=== PATIENT | female | born 1990 | race American Indian/Alaskan Native ===

== ENCOUNTER 2019-12-10 00:24 | Emergency (ER) | payer OTHER ==
[2019-12-10 01:24] VITALS: BP 106/72
[2019-12-10] MEDS ORDERED: diphenhydrAMINE 25 MG CAP PO ONE (04:07)
--- NOTE | 2019-12-10 04:11 | Emergency Department Report ---
ED Rash HPI - HPI Chief Complaint: Skin Rash Stated Complaint: ALLERGIC REACTION Time Seen by Provider: 12/10/19 04:01 Rash Symptoms: Yes Itching, No Facial Swelling, No Tongue/Oral Swelling, No Breathing Difficulties, No Choking Sensation, No Wheezing/Dyspnea, No Peeling, No Blistering, No Fever, No Lightheaded, No Malaise, No Myalgias Severity: mild Other History: Infected insect bites bilateral arms ED Review of Systems ROS: Stated complaint: ALLERGIC REACTION Other details as noted in HPI Constitutional: denies: chills, fever Eyes: denies: eye pain, eye discharge, vision change ENT: denies: ear pain, throat pain Respiratory: denies: cough, shortness of breath, wheezing Cardiovascular: as per HPI Endocrine: no symptoms reported Gastrointestinal: denies: abdominal pain, nausea, diarrhea Genitourinary: denies: urgency, dysuria, discharge Musculoskeletal: denies: back pain, joint swelling, arthralgia Skin: rash, pruritus, other (insect bites). denies: lesions Neurological: denies: headache, weakness, paresthesias Psychiatric: denies: anxiety, depression Hematological/Lymphatic: denies: easy bleeding, easy bruising ED Past Medical Hx - Past Medical History Previous Medical History?: No - Surgical History Past Surgical History?: No - Social History Smoking Status: Never Smoker Substance Use Type: None - Medications Home Medications: Home Medications Medication Instructions Recorded Confirmed Last Taken Type Triamcinolone Aceton 0.1% (Nf) 1 applic TP BID 7 Days #1 tube 12/10/19 Unknown Rx [Kenalog (NF)] diphenhydrAMINE [Benadryl CAP] 25 mg PO Q8HR PRN #154 capsule 12/10/19 Unknown Rx Rash Exam - Exam General: Vital signs noted. No distress. Alert and acting appropriately. HEENT: No Periorbital Edema, No Conjuctival Injection, No Chemosis, No Perioral Edema, No Tongue Edema, No Uvular Edema, No Compromised Airway, No Drooling Lungs: Yes Good Air Exchange (Normal Breath Sounds), No Wheezes, No Ronchi, No Stridor, No Cough, No Labored Respirations, No Retractions, No Use of Accessory Muscles, No Other Abnormal Lung Sounds Heart: Yes Regular, No Murmur Skin: Yes Urticarial Rash, Yes Erythema, Yes Other (multiple insect bites , mild erythema, no weeping, no fever), No Maculopapular Rash, No Morbilliform rash, No Bulla(e), No Excoriations, No Weeping, No Tenderness, No Edema, No Encrustations Other: Positive: Abdomen Normal, Neurologic Normal, Musculoskeletal Normal ED Course Vital Signs 12/10/19 01:09 Temperature 97.6 F Pulse Rate 61 Respiratory 17 Rate Blood Pressure 106/72 O2 Sat by Pulse 100 Oximetry ED Medical Decision Making - Medical Decision Making this is straight forward infected insect bites, with mild cellulitis, no fever , no chills, no n/v , weeping, plan: triamcinolone ointment , otc benadryl, follow up with primary care doctor in 2-3 days. Pt verbalized agreement and understanding of same. Critical care attestation.: If time is entered above; I have spent that time in minutes in the direct care of this critically ill patient, excluding procedure time. ED Disposition Clinical Impression: Infected insect bite Qualifiers: Encounter type: initial encounter Qualified Code(s): W57.XXXA - Bitten or stung by nonvenomous insect and other nonvenomous arthropods, initial encounter Cellulitis of arm Qualifiers: Laterality: right Qualified Code(s): L03.113 - Cellulitis of right upper limb Disposition: DC- TO HOME OR SELFCARE Is pt being admited?: No Does the pt Need Aspirin: No Condition: Stable Instructions: Cellulitis (ED), Insect Bite or Sting (ED) Prescriptions: diphenhydrAMINE [Benadryl CAP] 25 mg PO Q8HR PRN #154 capsule PRN Reason: Itching Triamcinolone Aceton 0.1% (Nf) [Kenalog (NF)] 1 applic TP BID 7 Days #1 tube Referrals: INGA DOMINGUEZ MD [Staff Physician] - 3-5 Days Forms: Work/School Release Form(ED) Time of Disposition: 04:18
== END 2019-12-10 04:36 | disposition home or self-care (01) ==
LOC: ED 00:24
DX: T14.8XXA Other injury of unspecified body region, initial encounter (principal); L03.113 Cellulitis of right upper limb; Z79.899 Other long term (current) drug therapy; W57.XXXA Bitten or stung by nonvenomous insect and other nonvenomous arthropods, initial encounter; Y93.89 Activity, other specified; Y92.89 Other specified places as the place of occurrence of the external cause; Y99.8 Other external cause status
CPT/HCPCS: 99282